=== PATIENT | female | born 2000 ===

== ENCOUNTER 2021-08-01 12:52 | Outpatient (CLI) | payer OTHER ==
[~2021-08-01] VITALS: Ht 160 cm; Wt 63.6 kg
[2021-08-01 12:49] VITALS: BP 120/72; PULSE 72; TEMP 98
[2021-08-01] MEDS ORDERED: [UNRECOGNIZED DRUG - REMARK] (15:05)
== END 2021-08-01 15:00 | disposition home or self-care (01) ==
LOC: EUO 12:52
DX: K91.0 Vomiting following gastrointestinal surgery (principal)
CPT/HCPCS: J1100; J2550; J7120